=== PATIENT | female | born 1945 | race Caucasian/White ===

== ENCOUNTER 2017-01-26 22:38 | Observation (INO) | payer MEDICARE, OTHER ==
[2017-01-26 23:34] LABS: Hematocrit 44 % (35-47); Hemoglobin 14.7 g/dl (12.0-16.0); Mean Corpuscular HGB Conc 33 g/dl (31-36); Mean Corpuscular Hemoglobin 30 pg (27-31); Mean Corpuscular Volume 90 fL (80-97); Mean Platelet Volume 8 um3 (7.4-10.4); Red Blood Count 4.89 10^6/ul (4.0-5.4); Red Cell Distribution Width 13 % (10.5-15)
[2017-01-26] MEDS ORDERED: Diltiazem IV* 5 MG/ML 5 ML VIAL (for loading dose/IV Push) (25 MG) IV SLOW PU ONE (23:48)
[2017-01-26 23:53] LABS: Albumin 4.1 g/dL (3.2-5.2); BUN/Creatinine Ratio 21.7 (8-20); Calcium 9.6 mg/dL (8.6-10.3); Globulin 2.9 g/dL (2-4); Magnesium 1.7 mg/dL (1.9-2.7); Potassium 3.4 mmol/L (3.5-5.0); Total Bilirubin 1.1 mg/dL (0.2-1.0)
[2017-01-26 23:55] LABS: Troponin I 0.01 ng/mL (<0.04)
[2017-01-27 00:12] LABS: TSH (Thyroid Stimulating Horm) 1.17 mcIU/mL (0.34-5.60)
[2017-01-27] MEDS ORDERED: Magnesium Sulfate 1 GM IV* 1 GM/100 ML BAG IV ONE (02:39)
[2017-01-27] MEDS ORDERED: Diltiazem DRIP* 100 MG/100 ML ADDV.BAG IVPB SCH (03:00)
[2017-01-27] MEDS ORDERED: Enoxaparin(*) 60 MG/0.6 ML SYR SUBCUT SCH (03:00)
[2017-01-27] MEDS: KCL 10 MEQ/50 ML IVPREMIX* 10 MEQ/50 ML BAG IV SCH ×2 (04:35→06:06)
[2017-01-27 04:47] LABS: BUN/Creatinine Ratio 18.6 (8-20); Calcium 9.5 mg/dL (8.6-10.3); EGFR African American 128.5 (>60); EGFR Non-African American 99.9 (>60); Magnesium 2.3 mg/dL (1.9-2.7); Potassium 3.3 mmol/L (3.5-5.0)
[2017-01-27] MEDS ORDERED: Diltiazem TAB* 30 MG PO SCH (06:00)
--- NOTE | 2017-01-27 07:53 | RAD ---
INDICATION: Irregular heart rate. Vomiting. Esophageal spasms. Nausea. COMPARISON: October 14, 2005 TECHNIQUE: Dual energy PA and routine lateral views of the chest were obtained. REPORT: Mild bilateral apical pleural-parenchymal scarring. Increased lung volumes and both mild prominence and patchy rarefaction of interstitial markings. Bilateral nipple shadows noted. No focal pulmonary lesion, alveolar consolidation, pleural effusion, pneumothorax. The heart, pulmonary vasculature, and mediastinal contours are unremarkable. Mild anterior compression deformity of the L1 vertebral body without gross cortical disruption or trabecular impaction to suggest an acute fracture. This region was not included within the [id number] on the prior exam limiting comparison. IMPRESSION: Stigmata of obstructive lung disease. No acute pulmonary or cardiac process evident.
--- NOTE | 2017-01-27 08:19 | HP ---
CC: Dr. Paris Pineda* HISTORY AND PHYSICAL: DATE OF ADMISSION: 01/27/17 CHIEF COMPLAINT: Palpitations. HISTORY OF PRESENT ILLNESS: The patient is a 71-year-old woman who said earlier in the day she started to have some esophageal spasms. This happened in the afternoon. Usually, she vomits and she gets better but she kept vomiting. This happened throughout the rest of the day and then she started feeling her heart pounding. This was about 8 p.m. This has never happened before. She denied any chest pain. She denied any shortness of breath. She laid down hoping it will go away, but it did not. So, she called the doctor stone dresser who advised her to go to the ER for further evaluation. In the ER, the patient was found to be in rapid atrial fibrillation. She would occasionally go into sinus rhythm, but most of the time spent in a rapid atrial fibrillation at a rate of 140. She said she was a little lightheaded this afternoon but she thought it mostly was from the vomiting. She says she never had this before; has no history of atrial fibrillation. PAST MEDICAL HISTORY: Significant for hypertension, goiter, GERD, thyroid nodule, achalasia. PAST SURGICAL HISTORY: For achalasia, a hysterectomy and her hip. CURRENT MEDICATIONS: At home were: 1. Hydrochlorothiazide 25 mg daily. 2. Metoprolol succinate 50 mg daily. 3. Magnesium oxide 400 mg daily. 4. Valium 5 mg daily as needed. 5. Chlor-Trimeton 4 mg daily as needed. 6. Acetaminophen 325 mg p.o. q.6 hours as needed. 7. Benadryl 25 mg every 6 hours as needed. ALLERGIES: She has allergy/adverse reactions to AUGMENTIN, IBUPROFEN, NIFEDIPINE, RAMIPRIL. FAMILY HISTORY: Reviewed noncontributory. SOCIAL HISTORY: No tobacco. Occasional alcohol. No recreational drug use. 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 She is . She has two children. Her is Vladislav Call and is her healthcare proxy. REVIEW OF SYSTEMS: A 14-point review of systems is completed with the patient. All pertinent positives and negatives are in the history of present illness, otherwise it is negative. PHYSICAL EXAMINATION GENERAL: A very pleasant gentleman lying in bed, in no acute distress. VITAL SIGNS: Blood pressure 143/95, pulse oxygenation 99%, respiratory rate 13 breaths per minute, heart rate 80 beats per minute, temperature 98.2 degrees. HEENT: Normocephalic and atraumatic. Pupils are equal, round, and reactive to light. Moist mucous membranes. NECK: Supple. No JVD, bruits, palpable thyroid or lymphadenopathy. CHEST: Clear to auscultation and percussion bilaterally. CARDIOVASCULAR: S1, S2 appreciated. ABDOMEN: Positive bowel sounds in all 4 quadrants. Soft, nontender, and nondistended. EXTREMITIES: No cyanosis, clubbing, or edema. NEUROLOGIC: Alert and oriented x3. Moves all extremities. SKIN: No rashes or abnormalities. LABORATORY DATA: White count 7.0, hemoglobin 14.7, hematocrit 44, platelets 304. Sodium is 134, potassium 3.4, chloride 101, CO2 25, BUN 13, creatinine 0.60 , glucose 119, total bili is 1.10, magnesium is 1.7. D-dimer is less than 200. INR is 0.96. EKG shows atrial fibrillation with rapid ventricular response. Chest x-ray preliminarily shows no acute infiltrates, wait for official reading. ASSESSMENT AND PLAN: 1. Atrial fibrillation with rapid ventricular response. We will start the patient on treatment dose of Lovenox. We will place the patient on Cardizem drip. What could have happened is that the patient vomited so much that her electrolytes were low including her potassium and magnesium. We will replete these and monitor her hopefully this will reverse. If not may get Cardiology involved for a DREW cardioversion in the morning. We will get TTE any way. 2. Hypertension. BP somewhat elevated. Continue current medication. We will hold hydrochlorothiazide with potassium. 3. Esophageal spasm. This appears to be improving per the patient, monitor. 4. FEN. Regular diet as tolerated. 5. DVT prophylaxis. Lovenox as noted. 6. The patient is a full code. TIME SPENT: Over 80 minutes was spent on this H and P; more than 45 minutes which is spent direct [id number] contact with patient evaluation, physical exam, counseling, and coordination of care. [id number]/CPS #: [id number] MTDD
[2017-01-27] MEDS ORDERED: Hydrochlorothiazide TAB* 25 MG PO SCH (09:00)
[2017-01-27] MEDS ORDERED: Magnesium Oxide TAB* 400 MG PO SCH (09:00)
[2017-01-27] MEDS ORDERED: Metoprolol Succinate XL TAB* 50 MG PO SCH (09:00)
--- NOTE | 2017-01-27 10:31 | ECHO ---
Patient: NASIR KARIMI [facility] Rec#: [id number] : 1945 Date: 01/27/2017 Age: 71y Height: 165.1 cm / 65.0 in Weight: 51.71 kg / 114.0 lbs Sex: F BSA: 1.56 Room#: [facility] Admit Date#: 01/27/2017 Type: Inpatient Referring: Niko Taveras MD Reading: Lang Callejas MD Cutter Woodwind Reeds: Kandis Hendricks RDCS CC: Paris Pineda MD Transthoracic Echocardiogram Indication: A-fib BP: 142/77 HR: 79 Rhythm: A-Fib Indications Atrial Fibrillation Findings History: HTN. Technical Comments: The study quality is fair. The study is technically limited due to poor parasternal windows. Completed at 0925. Left Ventricle: The left ventricular chamber size is normal. Mild concentric left ventricular hypertrophy is observed. There is increased basal septal hypertrophy noted without evidence of an increased gradient across the left ventricular outflow tract. c/w sigmoid septum. Global left ventricular wall motion and contractility are within normal limits. There is normal left ventricular systolic function. The estimated ejection fraction is 60-65%. The assessment of diastolic function is non-diagnostic. Left Atrium: The left atrium is mildly dilated.by 2d evaluation. Right Ventricle: The right ventricular cavity size is normal. The right ventricular global systolic function is normal. Right Atrium: The right atrial cavity size is normal. Aortic Valve: The aortic valve is trileaflet. The aortic valve leaflets are mildly thickened. There is a trace of aortic regurgitation. There is no evidence of aortic stenosis. Mitral Valve: The mitral valve leaflets are mildly thickened. There is mild to moderate mitral regurgitation. There is no evidence of mitral stenosis. Tricuspid Valve: The tricuspid valve leaflets are normal. There is mild tricuspid regurgitation. No pulmonary hypertension is noted. There is no tricuspid stenosis. Pulmonic Valve: The pulmonic valve appears normal in structure and function. There is a trace pulmonic regurgitation. There is no pulmonic stenosis. Pericardium: There is no significant pericardial effusion. Aorta: There is no dilatation of the ascending aorta. There is no dilatation of the aortic arch. There is no dilation of the aortic root. Pulmonary Artery: The main pulmonary artery is not well visualized. Venous: The inferior vena cava appears normal in size. There is a greater than 50% respiratory change in the inferior vena cava dimension. Summary: There was not any prior study for comparison. Conclusions Mild concentric left ventricular hypertrophy is observed. There is increased basal septal hypertrophy noted without evidence of an increased gradient across the left ventricular outflow tract c/w a sigmoid septum. The estimated ejection fraction is 60-65%. The assessment of diastolic function is non-diagnostic. The left atrium is mildly dilated by 2d evaluation. The aortic valve leaflets are mildly thickened. There is mild to moderate mitral regurgitation. There is mild tricuspid regurgitation. Measurements Name Value Normal Range RVIDd (AP) 2D 2.6 cm (0.9 - 2.6) RVDdMajor (2D) 3.1 cm (2.2 - 4.4) RAd ISD 4CH 4.7 cm (3.4 - 4.9) RA (A4C)W 3.7 cm (2.9 - 4.6) IVSd (2D) 1.1 cm (0.6 - 1) LVPWd (2D) 1.1 cm (0.6 - 1) LVIDd (2D) 3.7 cm (3.6 - 5.4) LVIDs (2D) 2.4 cm - LV FS (2D) 33 % (25 - 45) Aortic Annulus 2 cm (1.4 - 2.6) Ao root diameter (2D) 2.9 cm (2.1 - 3.5) Ascending Ao 2.8 cm (2.1 - 3.4) Aortic arch 2.6 cm (1.8 - 3.4) LA dimension (AP) 2D 3.4 cm (2.3 - 3.8) LAd ISD 4CH 4.6 cm (2.9 - 5.3) LA ISD 4CH W 3.6 cm (2.5 - 4.5) Name Value Normal Range LA ESV SP 4CH (A/L) 31 ml - LA ESV SP 2CH (A/L) 48 ml - LA ESV BP (A/L) 39 ml - LA ESV BP (A/L) index 24.85 ml/m2 - LA ESV SP 4CH (MOD) 29 ml - LA ESV SP 2CH (MOD) 46 ml - Name Value Normal Range MV E-wave Vmax 0.44 m/sec - MV deceleration time 227.6 msec - MV A-wave Vmax 0.53 m/sec - MV E:A ratio 0.84 ratio - LV septal e' Vmax 0.06 m/sec - LV lateral e' Vmax 0.08 m/sec - LV E:e' septal ratio 7.33 ratio - LV E:e' lateral ratio 5.5 ratio - Name Value Normal Range AV Vmax 1.42 m/sec - AV VTI 25.76 cm - AV peak gradient 8.16 mmHg - AV mean gradient 4.22 mmHg - LVOT Vmax 1.06 m/sec - LVOT VTI 20 cm - LVOT peak gradient 4.55 mmHg - LVOT mean gradient 2.16 mmHg - MENDY Vmax 0.62 m/sec - Name Value Normal Range MR Vmax 5.34 m/sec - MR VTI 105.69 cm - Name Value Normal Range TR Vmax 2.23 m/sec - TR peak gradient 20 mmHg - RAP 3 mmHg - RVSP 23 mmHg - IVC diameter 1.24 cm - Name Value Normal Range PV Vmax 0.9 m/sec - PV peak gradient 3.23 mmHg -
[2017-01-27 10:50] LABS: BUN/Creatinine Ratio 17.5 (8-20); Calcium 9.4 mg/dL (8.6-10.3); EGFR African American 133.7 (>60); Potassium 3.5 mmol/L (3.5-5.0)
[2017-01-27 12:37] VITALS: BP 119/62
--- NOTE | 2017-01-30 02:55 | DS ---
DISCHARGE SUMMARY: DATE OF ADMISSION: 01/27/17 DATE OF DISCHARGE: 01/27/17 DISCHARGE DIAGNOSES: 1. Atrial fibrillation with uncontrolled ventricular response. 2. History of hypertension. 3. Acute gastroenteritis. 4. Hypokalemia. 5. Hypomagnesemia. 6. History of achalasia with persistent esophageal spasm. 7. History of gastroesophageal reflux disease. 8. History of thyroid nodule. HISTORY: The patient is a 71-year-old woman admitted with palpitations due to atrial fibrillation in the setting of vomiting. Please see the dictated admission note for details of the present illness, past medical history, family history, social and personal history, review of systems, and physical examination. DIAGNOSTIC STUDIES/LAB DATA: CBC: WBC 7, H and H 14.7/44, MCV 90, and PLT 304K. INR 0.96, D-dimer less than 200. Chemistry: Sodium 134, potassium 3.4, chloride 101, CO2 25, BUN and creatinine 13/0.60, glucose 119, magnesium 1.7. Rest of the comprehensive metabolic panel was normal except for the bilirubin slightly elevated at 1.10. Repeat potassium on January 27 was 3.3, after repletion was 3.5. Magnesium after repletion was 2.3, repeat was 2.0. Imaging: Chest x-ray on 01/26/17 showed stigmata of obstructive lung disease. No acute changes. Electrocardiogram on 01/26/17 showed sinus rhythm, probable LVH. Second EKG showed atrial fibrillation with uncontrolled ventricular response. Otherwise unchanged. Transthoracic echocardiogram showed mild LVH, increased basal septal hypertrophy , EF 60% to 65%. HOSPITAL COURSE: The patient was admitted. She was started on treatment dose of Lovenox. She was placed on Cardizem. She converted to sinus rhythm. It was felt that she had had a queasy stomach for a few days and diarrhea and then vomiting. It was felt that it was likely due to gastroenteritis. Her has had similar symptoms. It was felt that she could have her diet advanced. She tolerated liquids and then light transitional diet on January 27. She remained in sinus rhythm. It was felt that she could be discharged. Her CHADS2 -VASc risk score was calculated at 3 points. It was felt that with a brief episode of atrial fibrillation related to vomiting and hypokalemia that it is clearly indicated to start anticoagulation despite her CHADS2-VASc score of 3. This will be discussed at her appointment with me next week. MEDICATIONS: At the time of discharge, she is to be on the following medications: 1. Metoprolol 50 mg once a day. 2. Magnesium oxide 400 mg once a day. 3. Valium 5 mg daily as needed. 4. Chlor-Trimeton 4 mg daily as needed. 5. Benadryl 25 mg every 6 hours as needed. 6. Oxycodone 5 mg 4 times a day as needed for pain. DISCHARGE FOLLOWUP: She is to have an appointment with me in 5 to 7 days, at which time anticoagulation will be discussed. Also, at the time of her appointment, she will have a BMP drawn. [id number]/CPS #: [id number] MILADIS
== END 2017-01-27 14:05 | disposition home or self-care (01) ==
LOC: ED 22:38 → INTOOBSV 01-27 02:02 → MEDTELE 01-27 02:02 → UNDODISIN 01-27 14:05
PROVIDERS: ADMIT Internal Medicine; ATTEND Internal Medicine Geriatric Medicine
DX: I48.91 Unspecified atrial fibrillation (principal); I10 Essential (primary) hypertension; J11.2 Influenza due to unidentified influenza virus with gastrointestinal manifestations; E87.6 Hypokalemia; E83.42 Hypomagnesemia; K22.0 Achalasia of cardia; K21.9 Gastro-esophageal reflux disease without esophagitis; E04.1 Nontoxic single thyroid nodule; Z88.0 Allergy status to penicillin; Z88.8 Allergy status to other drugs, medicaments and biological substances; I49.3 Ventricular premature depolarization; I51.7 Cardiomegaly
CPT/HCPCS: 36415; 71020; 80048; 80053; 83605; 83735; 84443; 84484; 85025; 85379; 85610; 93005; 93306; 96365; 96375; 99285; A9270-GY; G0378; J1650; J3480